=== PATIENT | female | born 1985 | race Caucasian/White ===

== ENCOUNTER → 2020-07-14 | Outpatient (CLI) | payer BC ==
[2020-07-14 10:12] LABS: Basophils # (A) 0.1 k/uL (0-0.2); Basophils % (A) 1 %; Eosinophils # (A) 0.2 k/uL (0-0.7); Eosinophils % (A) 3 %; HCT 47.1 % (34.0-46.0); HGB 16.4 gm/dL (11.4-16.0); Lymphocytes % (A) 27 %; MCH 32.2 pg (25.0-35.0); MCHC 34.8 g/dL (31.0-37.0); MCV 92.5 fL (80.0-100.0); Mean Platelet Volume 7.2; Monocytes # (A) 0.5 k/uL (0-1.0); Monocytes % (A) 7 %; Neutrophils # (A) 4.5 k/uL (1.3-7.7); Neutrophils % (A) 61 %; Platelet Count 265 k/uL (150-450); RBC 5.09 m/uL (3.80-5.40); RDW 11.9 % (11.5-15.5); WBC 7.4 k/uL (3.8-10.6)
== END | disposition home or self-care (01) ==
LOC: LABPAT 08:57
PROVIDERS: ATTEND Obstetrics & Gynecology
DX: Z01.818 Encounter for other preprocedural examination (principal); O02.1 Missed abortion
CPT/HCPCS: 36415; 85025

== ENCOUNTER 2020-07-15 10:57 | Day surgery (SDC) | payer BC ==
[2020-07-13 14:04] VITALS: BMI 27.7
[~2020-07-15 10:57] MED LIST: DEXAMETHASONE SOD PHOSPHATE 4 MG/ML 1 ML VIAL IV ONE; HYDROmorphone 0.5 MG/0.5 ML SYRINGE IVP PRN; LACTATED RINGERS 1,000 ML IV SCH; MIDAZOLAM 2 MG/2 ML VIAL IV PRN; ONDANSETRON 4 MG/2 ML VIAL IVP ONE; Pre Op ABX Message 1 EACH MISC MISCELLANE ONE; SCOPOLAMINE 1.5MG/72HR PATCH TRANSDERM ONE
[2020-07-15] MEDS ORDERED: LIDOCAINE 1% (10MG/ML) FOR IV START INTRADERMA ONE (11:45)
[2020-07-15 11:46] VITALS: RESP 16
[2020-07-15] MEDS ORDERED: MIDAZOLAM 2 MG/2 ML VIAL ONE (11:59)
[2020-07-15] MEDS ORDERED: LIDOCAINE 1% INJ 10MG/ML (20 ML MDV) ONE (11:59)
[2020-07-15] MEDS ORDERED: fentaNYL (PF) 50 MCG/ML 2 ML AMP ONE (11:59)
[2020-07-15] MEDS ORDERED: KETOROLAC 15 MG/ML 1 ML VIAL ONE (11:59)
[2020-07-15] MEDS ORDERED: PROPOFOL 10 MG/ML 20 ML VIAL IV ONE (11:59)
[2020-07-15] MEDS ORDERED: Rhogam IMMUNE GLOBULIN 1,500 UNIT/1 ML IM ONE (12:15)
[2020-07-15 12:37] VITALS: TEMP 98
[2020-07-15] MEDS ORDERED: ONDANSETRON 4 MG/2 ML VIAL IVP PRN (12:39)
[2020-07-15] MEDS ORDERED: METOCLOPRAMIDE 5 MG/ML 2 ML VIAL IVP PRN (12:39)
[2020-07-15] MEDS ORDERED: IBUPROFEN 600 MG TAB PO PRN (12:39)
[2020-07-15] MEDS ORDERED: diphenhydrAMINE 50 MG/ML 1 ML VIAL IVP PRN (12:39)
[2020-07-15] MEDS ORDERED: SIMETHICONE 80 MG CHEWABLE PO PRN (12:39)
[2020-07-15] MEDS ORDERED: KETOROLAC 15 MG/ML 1 ML VIAL IVP PRN (12:39)
[2020-07-15] MEDS ORDERED: Acetaminophen-Codeine 300-30mg TAB PO PRN ×2 (12:39)
--- NOTE | 2020-07-15 12:44 | P.OP ---
Date of Procedure: 07/15/20 Preoperative Diagnosis: #1. 7+ weeks missed Postoperative Diagnosis: Same Procedure(s) Performed: #1. Dilation and aspiration curettage Anesthesia: other (Gen. by face mask) Surgeon: Jabari Cleveland Estimated Blood Loss (ml): 100 IV fluids (ml): 400 Urine output (ml): 10 Pathology: other (Endometrial contents, products of conception) Condition: stable Disposition: PACU Operative Findings: Preoperative pelvic examination inserted is 78 week anteverted mobile normal shaped uterus with normal adnexa bilaterally. Intraoperatively, the uterus sounded to approximately 9 cm. A #8 curved aspiration curet was utilized and tissues clearly seen passing through the tubing on the first 2-3 passes, then not thereafter. The typical gritty texture was encountered with sharp curettage. The uterus was appreciably smaller following the procedure. Description of Procedure: The patient was prepped and draped in usual fashion after general anesthesia was initially by the anesthesiologist. A weighted speculum was placed in the bladder drained of approximately 10 mL of clear felicia urine. The anterior lip the cervix was grasped with a single-tooth tenaculum and uterus sounded to 9 cm as noted above. Serial dilation was carried out to admit a #8 curved aspiration curet which was placed to the fundus and suction applied. After adequate suction had been built, thorough and circumferential curettage was carried out from the fundus to the cervix. Tissue was clearly seen passing through the tubing on the first 2 passes, then not on the third. The aspiration curet was set aside in favor of a small sharp curette was utilized to again thoroughly and circumferentially curet the endometrium with the typical gritty texture encountered throughout and no tissue noted at any time. One last pass was made with the aspiration curet which no further tissue was noted. All instrumentation was removed. There was some bleeding from both tenaculum sites which was made hemostatic with pressure. Assessment a blood loss for the entire case was approximately 100 mL. There were no complications. All sponge, instrument, needle counts were correct. The patient tolerated the procedure well and proceeded to the recovery room in stable condition.
[2020-07-15] MEDS ORDERED: LACTATED RINGERS 1,000 ML IV SCH (12:45)
[2020-07-15 13:51] VITALS: BP 112/68; PULSE 71
== END 2020-07-15 13:52 | disposition home or self-care (01) ==
LOC: OR 10:57
PROVIDERS: ATTEND Obstetrics & Gynecology
DX: O02.1 Missed abortion (principal); K21.9 Gastro-esophageal reflux disease without esophagitis; F17.200 Nicotine dependence, unspecified, uncomplicated; Z88.5 Allergy status to narcotic agent
CPT/HCPCS: 86900; 86901; 88305; 86850; 59820; J2791; J2250; J1100; J2405; J2001; J3010; J1885; J2704